=== PATIENT | female | born 1995 | race African-American/Black ===

== ENCOUNTER 2019-11-25 19:11 | Emergency (ER) | payer OTHER ==
[~2019-11-25] VITALS: Ht 170.2 cm; Wt 95.3 kg
[2019-11-25] MEDS ORDERED: CLIN300C3 PO (19:57)
--- NOTE | 2019-11-25 20:11 | NUR ---
Patient presents to ER with c/o of infected tooth x 1 week. Patient states it is very painful and now feels pain and pressure on her neck and is having difficulty swallowing. Patient states she was placed on antibiotics and pain medication by her dentist but is still having pain. Patient in no acute distress. Pending MD velazco.
--- NOTE | 2019-11-25 20:22 | NUR ---
Dr. Castillo at bedside, evaluating patient.
[2019-11-25] MEDS ORDERED: IV NORMAL SALINE 1000 ML BAG IV ONE (20:30)
--- NOTE | 2019-11-25 20:36 | NUR ---
Pt provided urine sample, sent to lab.
[2019-11-25 20:45] LABS: BASOPHILS # (AUTO) 0.1 K/uL (0.0-8.0); BASOPHILS % (AUTO) 1.4 % (0.0-2.0); EOSINOPHILS # (AUTO) 0.5 K/uL (0.0-0.7); EOSINOPHILS % (AUTO) 5.7 % (0.0-7.0); HEMATOCRIT 41.3 % (31.2-41.9); HEMOGLOBIN 14.3 g/dL (10.9-14.3); LYMPHOCYTES # (AUTO) 1.5 K/uL (20.0-40.0); LYMPHOCYTES % (AUTO) 18.5 % (20.5-51.5); MEAN CORPUSCULAR HEMOGLOBIN 32.4 uug (24.7-32.8); MEAN CORPUSCULAR HGB CONC 35 g/dL (32.3-35.6); MEAN CORPUSCULAR VOLUME 93.4 fL (75.5-95.3); MONOCYTES # (AUTO) 0.7 K/uL (2.0-10.0); MONOCYTES % (AUTO) 9.4 % (0.0-11.0); NEUTROPHILS # (AUTO) 5.2 K/uL (1.8-8.9); PLATELET COUNT (AUTO) 250 K/uL (179-408); RED BLOOD CELL COUNT(AUTO) 4.42 MIL/uL (3.63-4.92)
[2019-11-25 20:53] LABS: CARBON DIOXIDE 25 mmol/L (21-32); CHLORIDE 104 mmol/L (98-107); CREATININE 0.9 mg/dL (0.6-1.3); GLUCOSE 99 mg/dL (74-106); POTASSIUM 4.1 mmol/L (3.5-5.1); UREA NITROGEN, BLOOD 11 mg/dL (7-18)
[2019-11-25 20:59] LABS: ALANINE AMINOTRANSFERASE 37 U/L (14-59); ALKALINE PHOSPHATASE 68 U/L (50-136); ASPARTATE AMINOTRANSFERASE 31 U/L (15-37); BILIRUBIN,DIRECT 0.1 mg/dL (0.0-0.2); BILIRUBIN,TOTAL 0.3 mg/dL (0.2-1.0); LIPASE 116 U/L (73-393); TOTAL PROTEIN, SERUM 8.1 g/dL (6.4-8.2)
[2019-11-25] MEDS ORDERED: ONDANSETRON 4 MG/2 ML VIAL IV ONE (21:00)
[2019-11-25] MEDS ORDERED: MORPHINE SULFATE 4 MG/1 ML DISP.SYRIN IV ONE (21:00)
[2019-11-25] MEDS ORDERED: IOHEXOL 300MG/ML 100 ML INFUS..BTL ONE (21:03)
[2019-11-25] MEDS ORDERED: IV NORMAL SALINE 250 ML IV ONE (21:03)
[2019-11-25] MEDS ORDERED: SWABABLE VALVE TRANSFER SET EA MC ONE (21:03)
[2019-11-25] MEDS ORDERED: ONDANSETRON 4 MG/2 ML VIAL ONE (21:07)
[2019-11-25] MEDS ORDERED: MORPHINE SULFATE 4 MG/1 ML DISP.SYRIN ONE (21:07)
--- NOTE | 2019-11-25 21:15 | NUR ---
Patient taken to CT via w/c
--- NOTE | 2019-11-25 21:30 | NUR ---
Pt back to ER from CT.
[2019-11-25] MEDS ORDERED: HYDROMORPHONE 1 MG/1 ML DISP.SYRIN IV ONE (21:45)
[2019-11-25] MEDS ORDERED: HYDROMORPHONE 1 MG/1 ML DISP.SYRIN ONE (21:52)
--- NOTE | 2019-11-25 22:21 | NUR ---
Pt states dilaudid did not help her and that her pain is still there. Pt also states it is hard for her to breath now, lung sounds clear to auscultation, bilaterally. sp02 98% r/a. Dr. Castillo made aware of pt's complaints.
[2019-11-25] MEDS ORDERED: diphenhydrAMINE 50 MG/1 ML VIAL IV ONE (22:30)
[2019-11-25] MEDS ORDERED: diphenhydrAMINE 50 MG/1 ML VIAL ONE (22:33)
[2019-11-25] MEDS ORDERED: VANCOMYCIN IV 1,000 MG in IV DEXTROSE 5% 250 ML IV ONE (23:00)
[2019-11-25] MEDS ORDERED: CEFTRIAXONE 1 G in IV DEXTROSE 5% 50 ML IV ONE (23:00)
[2019-11-25] MEDS ORDERED: CEFTRIAXONE 1 G VIAL ONE (23:03)
--- NOTE | 2019-11-25 23:31 | NUR ---
Patient is still complaining of pain despite recieving medication. Dr. Castillo made aware.
[2019-11-25] MEDS ORDERED: FENTANYL CITRATE 100 MCG/2 ML AMPUL IV ONE (23:45)
[2019-11-25] MEDS ORDERED: FENTANYL CITRATE 100 MCG/2 ML AMPUL ONE (23:46)
[2019-11-25] MEDS ORDERED: VANCOMYCIN IV 200 ML ONE (23:47)
--- NOTE | 2019-11-26 00:05 | NUR ---
Called [facility] to page Dr. Palomares.
--- NOTE | 2019-11-26 00:13 | NUR ---
Pt not accepted for admission due to need for EENT specialist.
--- NOTE | 2019-11-26 01:07 | NUR ---
Placed call to [facility] spoke with Srikanth, [facility] not [facility] beds.
--- NOTE | 2019-11-26 01:10 | NUR ---
Placed call to [place], spoke with Jayme ([facility]) states they do not have an ENT.
--- NOTE | 2019-11-26 01:13 | NUR ---
Spoke with Tito GHOSH at [facility], states "We don't have any beds right now, we are at full capacity."
[2019-11-26] MEDS ORDERED: HYDROMORPHONE 1 MG/1 ML DISP.SYRIN ONE (01:58)
[2019-11-26] MEDS ORDERED: ONDANSETRON 4 MG/2 ML VIAL ONE (01:58)
[2019-11-26] MEDS ORDERED: ONDANSETRON 4 MG/2 ML VIAL IV ONE (02:00)
[2019-11-26] MEDS ORDERED: HYDROMORPHONE 1 MG/1 ML DISP.SYRIN IV ONE (02:00)
--- NOTE | 2019-11-26 02:43 | NUR ---
Patient discharged to home in stable conditon. Written and verbal after care instructions given. Patient verbalizes understanding of instructions. Pt ambulated out of ER with steady gait, no acute signs of distress, VSS, all belongings taken, to be driven home via private vehicle by significant other.
[2019-11-26 02:44] VITALS: BP 135/71
== END 2019-11-26 02:44 | disposition home or self-care (01) ==
LOC: ER 19:17
DX: K11.20 Sialoadenitis, unspecified (principal); F17.200 Nicotine dependence, unspecified, uncomplicated; Z79.2 Long term (current) use of antibiotics
CPT/HCPCS: 36415; 70487; 70491; 80048; 80076; 83605; 83690; 84484; 84702; 85025; 85730; 87040 ×2; 96365; 96366; 96368; 96375 ×2; 96376; 99285; J0696; J1170 ×2; J1200; J2270; J2405 ×2; J3010; J3370; J7060; Q9967; 70030-TC; A4663; J7050